=== PATIENT | male | born 2005 | race Two or more races ===

== ENCOUNTER 2025-03-27 06:24 | Day surgery (SDC) | payer MEDICAID ==
[2025-03-26 14:21] LABS: Urine Protein, UAD TRACE (Negative)
[2025-03-26 14:25] LABS: Hematocrit 47.4 % (41.0-53.0); Hemoglobin 16.5 g/dL (13.5-17.5); Mean Corpuscular Hemoglobin 29.5 pg (28.0-32.0); Mean Corpuscular Volume 84.7 fL (80.0-100.0); Nucleated Red Blood Cells % 0.1 %
[2025-03-26 14:39] LABS: INR 1.14 (0.9-1.15); Partial Thromboplastin Time 30.9 SEC (24.5-34.5); Prothrombin Time 11.9 sec (9.3-11.8)
[2025-03-26 14:58] LABS: Alanine Aminotransferase 21 U/L (7-40); Albumin 4.7 g/dL (3.2-4.8); Anion Gap 9 (5-15); BUN/Creatinine Ratio 13.4 (10.0-20.0); Bilirubin, Total 0.8 mg/dL (0.2-1.0); Blood Urea Nitrogen 16 mg/dL (9-23); Calcium 9.8 mg/dL (8.7-10.4); Carbon Dioxide 28 mmol/L (20-31); Chloride 103 mmol/L (98-107); Glucose 90 mg/dL (74-106); Potassium 4.4 mmol/L (3.5-5.1); Sodium 140 mmol/L (136-145); Total Protein 7.9 g/dL (5.7-8.2)
[2025-03-26 14:59] LABS: Alkaline Phosphatase 136 U/L (46-116)
[~2025-03-27] VITALS: Ht 170.2 cm; Wt 90.7 kg
[~2025-03-27 06:24] MED LIST: ceFAZolin 2 GM/D5W50ml 50 ML IV ONE
[2025-03-27] MEDS ORDERED: KETAMINE 50mg/ML 1ml syringe ONE (06:41)
[2025-03-27] MEDS ORDERED: SODIUM CHLORIDE LOCK 10 ML ONE (06:42)
[2025-03-27] MEDS ORDERED: ONDANSETRON HCL 4 MG/2 ML VIAL ONE (06:42)
[2025-03-27] MEDS ORDERED: MIDAZOLAM HCL 2MG/2ML 2ml VIAL (1mg/ml) ONE (06:42)
[2025-03-27] MEDS ORDERED: PROPOFOL 10 MG/ML 20 ML IV ONE (06:42)
[2025-03-27] MEDS ORDERED: LIDOCAINE HCL 2% TOP JELLY 5ML TOP ONE (06:42)
[2025-03-27] MEDS ORDERED: LIDOCAINE 1% INJ PF 5ML AMP ONE (06:42)
[2025-03-27] MEDS ORDERED: fentaNYL CITRATE 100 MCG/2 ML VL ONE (06:42)
[2025-03-27] MEDS ORDERED: MEPERIDINE HCL (25 MG/ML) 1ML VIAL ONE (06:42)
[2025-03-27] MEDS ORDERED: BUPIVACAINE HCL 50 ML ONE (07:06)
[2025-03-27] MEDS ORDERED: HYDROmorphone HCL 2 MG/ML VL/or syr IV PRN ×2 (07:15)
[2025-03-27] MEDS ORDERED: METOCLOPRAMIDE HCL 5MG/ml INJ 2ml VIAL IV PRN (07:15)
[2025-03-27] MEDS ORDERED: MORPHINE SULFATE INJ 2 MG/ml SYRG IV PRN (07:15)
[2025-03-27] MEDS ORDERED: MORPHINE SULFATE 4 MG/ML SYR/VIAL IV PRN (07:15)
[2025-03-27 09:05] VITALS: PULSE 91; RESP 15; TEMP 97.8; O2SAT 95
--- NOTE | 2025-03-27 09:13 | DVHOP2 ---
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 These include but are not limited to complications of anesthesia, postoperative infection, incomplete relief of symptoms, recurrence of symptoms, damage to blood vessels, nerves and tendons, deep venous thrombosis, pulmonary embolism and possible need for repeat surgery in the future. Complications: None Estimated Blood Loss: Less than 5 mL Indications for Surgery: The patient is a 19-year-old male who presented to the clinic with a history of right knee pain. Clinical and radiological evaluation demonstrated complex lateral meniscus tear, possible root tear. Nonoperative and operative management options were discussed. Surgery in the form of knee arthroscopy with meniscus repair versus meniscectomy, possible root repair was discussed with him. Benefits, risks and treatment alternatives were discussed. Specific complications of the surgery such as neurovascular injury, infection, arthrofibrosis, loss of limb or life were discussed. He decided to proceed with the surgical option. Name of Procedure Performed Right knee arthroscopy with lateral meniscus repair, chondroplasty of the lateral compartment Procedure Details Procedure Details: The patient was identified in the preoperative holding area and the surgical site was marked. The consent was verified. The patient was brought into the operating room and placed supine on the operating table. General anesthesia was administered. A tourniquet was applied over the proximal thigh. All the bony prominences were appropriately padded. The knee was positioned appropriately. The extremity was now prepped and draped in the usual sterile manner. A timeout was called out to confirm the identity of the patient, the nature of surgery, the site of surgery, the availability of implants and x-rays and allergies to medications. A standard anterolateral portal was established. A 30 degree scope was inserted. A standard anteromedial portal was established, a probe was inserted and the findings are as follows 1. Lateral meniscus complex tear 2. Intact ACL and PCL 3. Intact medial compartment cartilage 4. 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 Intact patellofemoral joint with normal bio kinematics The complex tear was probed. This was a flap tear that was flipped on the undersurface. This was released with a probe. Partial meniscectomy was initially carried out. Around 67 mm of peripheral rim was remaining. However the posterior horn was unstable and decided to stabilize it and repaired it to the capsule. A fiber stitch implant was inserted initially and deployed. Then the 2nd one was deployed in a horizontal manner fashion according to marine services technician's guidelines. Excellent fixation was noted. Chondroplasty of the lateral femoral condyle and the lateral tibial plateau was carried out. This was a diffuse area approximately 1 cm, grade 2. Fibrillation was noted. The skin incisions were closed with 3-0 Monocryl. Sterile dressing was applied. The knee was set in the brace. Disposition: Good, the patient was extubated and taken to the recovery without any complications Plan: Partial weight-bearing for four weeks, then weightbear as tolerated. Range of motion as tolerated. Condition Good Disposition Home THERESE CAMPBELL MD Mar 27, 2025 09:13
[2025-03-27] MEDS ORDERED: IBUP-1454 PO (09:15)
[2025-03-27] MEDS ORDERED: CEPH500C PO (09:15)
[2025-03-27] MEDS ORDERED: ASPI-498 OR (09:15)
[2025-03-27] MEDS: KETOROLAC TROMETH 30 MG/ML 1ML VIAL IV ONE (09:53)
[2025-03-27 10:00] VITALS: BP 137/93; PULSE 98; RESP 20; O2SAT 99
== END 2025-03-29 10:38 | disposition home or self-care (01) ==
LOC: SUR 06:24
PROVIDERS: ATTEND Orthopaedic Surgery Sports Medicine
DX: S83.27 Complex tear of lateral meniscus, current injury (principal); M94.261 Chondromalacia, right knee; E66.01 Morbid (severe) obesity due to excess calories; Z79.82 Long term (current) use of aspirin; X58.XXXA Exposure to other specified factors, initial encounter; Y93.67 Activity, basketball; Y92.89 Other specified places as the place of occurrence of the external cause; Y99.8 Other external cause status
CPT/HCPCS: 29882; 36415; 80053; 81001; 85025; 85610; 85730; C1713; J0690; J1885; J2175; J2250; J2405; J2704; J3010; J3490